=== PATIENT | male | born 1990 | race Caucasian/White ===

== ENCOUNTER 2016-04-28 14:46 | Outpatient (CLI) | payer BC | END 2016-04-28 14:47 | disposition home or self-care (01) | DX: M54.2 Cervicalgia (principal) ==

== ENCOUNTER 2016-06-28 17:07 | Outpatient (CLI) | payer MEDICAID | END 2016-06-28 17:08 | disposition home or self-care (01) | DX: M50.222 Other cervical disc displacement at C5-C6 level (principal); M25.78 Osteophyte, vertebrae ==

== ENCOUNTER 2019-07-21 08:00 | Outpatient (CLI) | payer MEDICAID ==
--- NOTE | 2019-07-21 22:23 | XRAY Report ---
Reason: COUGH Procedure Date: 07/21/2019 Accession Number: [id number] / [id number] Procedure: WCP - Chest 2 View X-Ray CPT Code: 43448 Final Report FULL RESULT: EXAM: CHEST RADIOGRAPHY EXAM DATE: 07/21/2019 12:03 PM. CLINICAL HISTORY: COUGH. COMPARISON: None. TECHNIQUE: 2 views. FINDINGS: Lungs/Pleura: No dense consolidation. No large effusion or pneumothorax. No pulmonary edema. Mediastinum: Heart and mediastinal contours are unremarkable. Other: None. IMPRESSION: No acute radiographic pulmonary abnormalities. [facility]
== END 2019-07-21 23:59 | disposition home or self-care (01) ==
LOC: DI.WCP 08:00
PROVIDERS: ATTEND Physician Assistant Medical
DX: R05 Cough (principal)
CPT/HCPCS: 71046

== ENCOUNTER 2020-02-14 13:23 | Outpatient (CLI) | payer MEDICAID ==
[2020-02-15] MEDS ORDERED: ALBUTEROL 1 PUFF INH STA (16:35)
== END 2020-02-14 13:24 | disposition home or self-care (01) ==
LOC: RT 13:23
PROVIDERS: ATTEND Physician Assistant
DX: J45.909 Unspecified asthma, uncomplicated (principal); R05 Cough
CPT/HCPCS: 94060